=== PATIENT | male | born 1960 | race Caucasian/White ===

== ENCOUNTER 2017-05-03 16:02 | Outpatient (CLI) | payer OTHER | END 2017-05-03 16:03 | disposition home or self-care (01) | LOC: BICRAD 16:02 | PROVIDERS: ATTEND Specialist | DX: R05 Cough (principal) | CPT/HCPCS: 71046 ==

== ENCOUNTER 2017-08-21 11:14 | Outpatient (CLI) | payer OTHER | END 2017-08-21 11:15 | disposition home or self-care (01) | LOC: BICRAD 11:14 | PROVIDERS: ATTEND Family Medicine | DX: M25.521 Pain in right elbow (principal) ==

== ENCOUNTER 2017-08-29 15:40 | Outpatient (CLI) | payer OTHER | END 2017-08-29 15:41 | disposition home or self-care (01) | LOC: BICMRI 15:40 | PROVIDERS: ATTEND Family Medicine | DX: S42.451A Displaced fracture of lateral condyle of right humerus, initial encounter for closed fracture (principal); M89.8X4 Other specified disorders of bone, hand; M25.441 Effusion, right hand; M24.021 Loose body in right elbow; S56.511A Strain of other extensor muscle, fascia and tendon at forearm level, right arm, initial encounter; M94.8X3 Other specified disorders of cartilage, forearm; G56.81 Other specified mononeuropathies of right upper limb ==

== ENCOUNTER 2017-12-21 16:50 | Outpatient (CLI) | payer OTHER ==
--- NOTE | 2017-12-22 12:11 | MRI ---
MRI OF THE RIGHT SHOULDER WITHOUT CONTRAST: INDICATION: Right shoulder pain with difficulty raising arms for 3 months. The patient has a history of fall on the right shoulder. COMPARISON: None. FINDINGS: A small amount of fluid is seen within the subacromial subdeltoid bursa. There is a very low-grade u ndersurface tear involving the anterior to mid supraspinatus at the footprint measuring 0.7 x 1 cm in its greatest mediolateral and AP dimensions respectively. The infraspinatus is intact. No muscular atrophy is evident. There is moderate AC joint osteoarthrosis with joint hypertrophy causing mild e ncroachment on the subjacent supraspinatus. No os acromiale is evident. There is a type II acromion . The biceps tendon is located. The inferior glenohumeral labral ligamentous complex appears intact . No large joint effusion is evident. The biceps anchor complex is intact. IMPRESSION: 1. Low-grade partial thickness articular surface tear of the anterior to mid supraspinatus at the fo otprint with mild supraspinatus an infraspinatus tendinosis. 2. Moderate acromioclavicular joint osteoarthrosis with mild encroachment. 3. A small amount of fluid in the subacromial subdeltoid space may reflect mild bursitis. POS: [facility]
== END 2017-12-21 16:51 | disposition home or self-care (01) ==
LOC: MRI 16:50
PROVIDERS: ATTEND Orthopaedic Surgery
DX: M25.511 Pain in right shoulder (principal); M19.011 Primary osteoarthritis, right shoulder; M75.101 Unspecified rotator cuff tear or rupture of right shoulder, not specified as traumatic

== ENCOUNTER 2018-01-09 13:50 | Outpatient (CLI) | payer OTHER ==
[2018-01-09 14:49] LABS: Hemoglobin 18.7 g/dL (14.0-18.0); Mean Corpuscular HGB CONC 32.4 g/dL (32.0-36.0); Mean Corpuscular Hemoglobin 31.6 pg (27.0-31.0); Mean Corpuscular Volume 97.6 fL (78.0-98.0); Mean Platelet Volume 6.4 fL (7.4-10.4); Platelet Count 283 thou/uL (130-400); RBC Distribution Width 12.4 % (11.5-14.5); Red Blood Cell (RBC) Count 5.91 mill/uL (4.70-6.10)
[2018-01-09 15:06] LABS: Anion Gap 11 mmol/L (10-20); BUN (Urea Nitrogen) 29 mg/dL (8.4-25.7); Calc. Creatinine Clearance 0 mL/min (70-130); Calcium 9.7 mg/dL (7.8-10.44); Carbon Dioxide 29 mmol/L (22-29); Chloride 102 mmol/L (98-107); Estimated GFR-MDRD 61; Glucose 115 mg/dL (70-105); Potassium 4.5 mmol/L (3.5-5.1); Sodium 137 mmol/L (136-145)
--- NOTE | 2018-01-10 10:21 | EKG ---
Test Reason : Blood Pressure : / mmHG Vent. Rate : 064 BPM Atrial Rate : 064 BPM P-R Int : 192 ms QRS Dur : 092 ms QT Int : 362 ms P-R-T Axes : 042 025 040 degrees QTc Int : 373 ms Poor data quality, interpretation may be adversely affected Normal sinus rhythm Cannot exclude Anteroseptal infarct , age undetermined Abnormal ECG Confirmed by MAIA LANDERS ([id number]) on 01/10/2018 10:20:35 AM Referred By: AIDAN Confirmed By:MAIA LANDERS
== END 2018-01-09 13:51 | disposition home or self-care (01) ==
LOC: LABBT 13:50
PROVIDERS: ATTEND Orthopaedic Surgery
DX: Z01.818 Encounter for other preprocedural examination (principal)
CPT/HCPCS: 80048; 85027; 93005; 93010

== ENCOUNTER 2018-01-18 07:10 | Day surgery (SDC) | payer OTHER ==
[2018-01-09 14:06] VITALS: BMI 29.5
[2018-01-18] MEDS ORDERED: Fentanyl 100 MCG/2 ML VIAL ONE ×3 (08:33→12:16)
[2018-01-18] MEDS ORDERED: Midazolam HCl 2 mg/2 ml Vial ONE (08:33)
[2018-01-18] MEDS ORDERED: Lidocaine 2% Jelly 5 ML TUBE ONE (08:33)
[2018-01-18] MEDS ORDERED: Bupivacaine/Epinephrine 0.25% 30 ML VIAL ONE (08:41)
[2018-01-18] MEDS ORDERED: Dexamethasone 20 MG/5 ML VIAL ONE (08:48)
[2018-01-18] MEDS ORDERED: Betamet Acet/Betamet Na Ph 30 MG/5 ML VIAL ONE (08:48)
[2018-01-18] MEDS ORDERED: CEFAZOLIN 2 GM/50 ML BAG ONE (08:52)
--- NOTE | 2018-01-18 14:01 | RAD ---
TWO VIEWS RIGHT ELBOW: INDICATION: Foreign body removal. COMPARISON: Reference is made to radiograph of 08/21/2017. FINDINGS: Lateral projection of the right elbow reveals osseous irregularity at the site of the patient's previ ously diagnosed fracture of the capitellum. This is limited in evaluation by lateral projection. IMPRESSION: Intraoperative fluoroscopic imaging revealing lateral view of the right elbow, redemonstrating fractu re at the region of the capitellum. POS: [facility]
--- NOTE | 2018-01-18 14:01 | OP ---
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 Elbow arthroscopy with debridement and removal of loose bodies 2. Open arthrotomy with excision of the capitellum loose bodies. 3. Contracture release. 4. Right subacromial injection. STAFF: Landen Lozada M.D. ANESTHESIA: Aleena. The patient received general endotracheal intubation. He received 20 mL of Marcaine 0.25% with epinephrine intraarticularly preprocedure. He received 4 cc of marcaine and 60 mg of depomedrol subacromial after procedure. EBL: 50 cc TOURNIQUET TIME: 101 min 205 mmHg IMPLANTS: None EXPLANTS: capitellar OCD and multiple loose bodies ANTIBIOTICS: Ancef 2grams COMPLICATIONS: Broken arthroscopy grasper, fragment which was removed HISTORY OF PRESENT ILLNESS: 57 year male with a history of right elbow pain and right shoulder pain. He had a history of a right elbow I&D 4 years ago for a fungal infection. The patient had MRI evidence of a loose OCD of the capitellum with other loose bodies noted. The patient had limitations for extension. He has a history of chronic pain. He had pain with ROM. I discussed an arthroscopic versus open debridement with removal of loose bodies and capsular release of right elbow. Discussed risks and benefits of surgery to include: stiffness, damage to nerve/ artery/tendon, pain, scar, bleeding, decreased ROM/strength/function, infection , arthritis, loss of life or limb. The patient signed his consent. PROCEDURE NOTE: After a timeout was performed designated right elbow as the operative site based on consents, radiographs and markings. The tourniquet was brought up, it was left up for 101 minutes. I made a proximal anterior medial and proximal anterolateral portals, visualized intraarticular within the joint. I debrided the synovium and scar tissue. I visualized the capitellar OCD with a loose body which I pulled out 2-3 little small loose bodies. I made a mid- anterior lateral incision just anterior to the capitellum through his previous Anthony's interval scar, dissected in, was attempting to bring out the fragment when my grasper broke. I then attempted to grab the metal but was unsuccessful. Then switching from medial to lateral to get the capitellar defect would be best to remove it open. Given this and difficulty with arthroscopic procedure I converted to open through the previous Anthony incision extending it proximally through my incision oblique and back, came down through what looked like either EDC versus anconeus interval, coming down on the posterior aspect of the radial head, dissecting through the annular ligament. I came down on the capitellum, dissected off bone, took a portion of the patient 's brachioradialis to expose his joint, we took down the remnant of the capsule and released the capsule and was able to bring him to 0 degrees. Removed the remainder of the OCD, the metal fragment took the remainder of the time to find. We had to localized it under fluoroscopic guidance. It had fallen medially within the capitellum. After finally extracting it, taking the majority of the procedure, we washed the joint. I closed with 0 Vicryl my arthrotomy and my lateral column. I closed subcutaneous with 2-0 and 3-0 nylon , placed the patient in a soft tissue dressing. I then cleaned his right shoulder, injected his right shoulder with 60 mL of Depo-Medrol and 4 mL of Marcaine 0.25% with epinephrine. The patient was placed in a splint. He will receive postop block given history of chronic pain and duration of procedure. We will examine nerve function before proceeding with block. He will begin range of motion of his right arm. He will be followed up for suture removal in about 12-14 days. OMKAR
--- NOTE | 2018-01-19 02:50 | HP ---
HISTORY OF PRESENT ILLNESS: Mr. Comer is a 57-year-old male presents with left elbow pain. There has been a history of elbow fungal infection 4 years ago. History of back fusion. The patient presented with cubital tunnel symptoms his hand and has history of numbness and tingling, which was improved. The patient also has right shoulder pain, which showed a bursal-sided tear and would like to have an injection while being evaluated intraoperatively. PAST MEDICAL HISTORY: Hypertension, high cholesterol, diabetes, chronic pain. PAST SURGICAL HISTORY: Tonsillectomy, knee surgery, left knee I and Ds, right thigh I and Ds, right total knee arthroplasty, right elbow I and D, back fusion x2. MEDICATIONS: Please see admission list. ALLERGIES: LISINOPRIL. SOCIAL HISTORY: The patient has a history of drinking, history of smoking. The patient is a nonsmoker currently. He is a salesman, . PHYSICAL EXAMINATION: GENERAL: Alert and oriented male, in no acute distress, resting comfortably in bed. MUSCULOSKELETAL: On the right elbow, the patient has well-healed lateral incision. The patient has range of motion about 20 to 130 degrees. Strength is 5/5. No instability. Negative Tinel's. I could not touch, radial or ulnar function, neurovascularly intact distally. The patient has good cap refill. Right shoulder has pain with impingement signs and some weakness overhead activities. Otherwise, good range of motion. IMPRESSION: OCD capitellum, Arthritis of right elbow with loose bodies and degenerative cartilage with decreased range of motion. PLAN: The patient was taken back to the OR for an arthroscopic debridement vs open of his loose bodies as well as potential capsular release. I discussed with the patient that I would perform a subacromial injection for the patient's pain relief. I discussed the risks and benefits of surgery, most importantly potential damage to nerve structures. I discussed the risks and benefits of surgery including pain, scar, bleeding, infection, decreased range of motion or strength, damage to vital structures, continued pain, arthritis. The patient understands the risks and benefits and elected to proceed. The patient understands. We will proceed forward with a right elbow arthroscopic vs open debridement with capsular release and a right shoulder injection. OMKAR
== END 2018-01-18 13:28 | disposition home or self-care (01) ==
LOC: SDC 07:10
PROVIDERS: ATTEND Orthopaedic Surgery
PROC: 0RNL0ZZ Release Right Elbow Joint, Open Approach (ICD-10-PCS; principal; 2018-01-18)
PROC: 0RCL0ZZ Extirpation of Matter from Right Elbow Joint, Open Approach (ICD-10-PCS; principal; 2018-01-18)
PROC: 3E0U3BZ Introduction of Anesthetic Agent into Joints, Percutaneous Approach (ICD-10-PCS; 2018-01-18)
DX: M93.221 Osteochondritis dissecans, right elbow (principal); M24.021 Loose body in right elbow; M19.021 Primary osteoarthritis, right elbow; G56.21 Lesion of ulnar nerve, right upper limb; M25.511 Pain in right shoulder; E11.9 Type 2 diabetes mellitus without complications; E78.00 Pure hypercholesterolemia, unspecified; I10 Essential (primary) hypertension; Z53.33 Arthroscopic surgical procedure converted to open procedure; Z79.84 Long term (current) use of oral hypoglycemic drugs; Z79.899 Other long term (current) drug therapy; Z88.8 Allergy status to other drugs, medicaments and biological substances; Z98.1 Arthrodesis status; Z98.890 Other specified postprocedural states
CPT/HCPCS: 36416; 76001; 96374; J0702; J1100; J2250; J3010

== ENCOUNTER 2019-02-21 17:30 | Outpatient (CLI) | payer OTHER | END 2019-02-21 17:31 | disposition home or self-care (01) | LOC: SLEEPLAB 17:30 | PROVIDERS: ATTEND Family Medicine | DX: F51.9 Sleep disorder not due to a substance or known physiological condition, unspecified (principal); G47.33 Obstructive sleep apnea (adult) (pediatric); R53.83 Other fatigue | CPT/HCPCS: 95806 ==

== ENCOUNTER 2019-10-02 14:30 | Outpatient (CLI) | payer OTHER ==
--- NOTE | 2019-10-02 15:37 | MRI ---
MRI lumbar spine noncontrast HISTORY: Low back pain. Prior surgery. FINDINGS: The conus medullaris has normal appearance and terminates at the L1-2 level. Vertebral body heights are maintained with the exception of minimal physiologic wedging at the T12 and L1 levels. Mild discogenic endplate changes. There is desiccation of the lowest 2 intervertebral discs. Images including the retroperitoneum show cortical cysts of each kidney. Mild posterior disc bulge at T11/12 level. T12-L1, L1-2, L2-3, L3-4: Mild osteophytosis of the facets. Disc hydration is maintained. Central can al and neural foramina are patent. L4-5: Minimal degenerative retrolisthesis. Posterior disc bulge with very mild effacement of the thec al sac. No significant central canal stenosis. Osteophytosis of the facets. Neural foramina are partially obscured by metallic susceptibility artifact from adjacent hardware. There is the appearanc e of severe left and moderate right foraminal stenoses. L5-S1: Posterior operative fixation. 0.8 cm spondylolisthesis is similar to the CT exam from 2016. Th ecal sac is patent. Neural foramina partially obscured by metallic susceptibility artifact. There is suggestion of severe bilateral foraminal stenoses. IMPRESSION : Postoperative changes lower lumbar spine. While the neural foramina are partially obscured by metalli c susceptibility artifact from the adjacent hardware, there is suggestion of significant bilateral foraminal stenoses at the lowest 2 levels.
== END 2019-10-02 14:31 | disposition home or self-care (01) ==
LOC: TBSIIMAG 14:30
PROVIDERS: ATTEND Nurse Practitioner Family
DX: M47.26 Other spondylosis with radiculopathy, lumbar region (principal); Z98.890 Other specified postprocedural states
CPT/HCPCS: 72148

== ENCOUNTER 2020-01-16 06:56 | Outpatient (CLI) | payer OTHER ==
[2020-01-17 15:02] LABS: SARS-CoV-2 MS2 Positive; SARS-CoV-2 N Gene Negative; SARS-CoV-2 S Gene Negative; SARS-CoV-2 by NAA Not Detected (NotDetected); SARS-CoV-2 orf1ab Negative
== END 2020-01-16 06:57 | disposition home or self-care (01) ==
LOC: LABBT 06:56
PROVIDERS: ATTEND Orthopaedic Surgery
DX: G56.01 Carpal tunnel syndrome, right upper limb (principal); G56.21 Lesion of ulnar nerve, right upper limb; Z20.828 Contact with and (suspected) exposure to other viral communicable diseases
CPT/HCPCS: 87635; 93005; 93010; U0003

== ENCOUNTER 2020-01-21 05:59 | Day surgery (SDC) | payer OTHER ==
[2020-01-20 11:21] VITALS: BMI 29.8
[2020-01-21] MEDS ORDERED: Acetaminophen 500 MG TAB ONE (07:40)
[2020-01-21] MEDS ORDERED: Fentanyl 100 MCG/2 ML VIAL ONE ×3 (08:22→10:18)
[2020-01-21] MEDS ORDERED: EPINEPHrine 1 MG/ML AMP ONE (08:23)
[2020-01-21] MEDS ORDERED: Ondansetron PF 4 MG/2 ML Vial ONE (10:26)
[2020-01-21] MEDS ORDERED: Rocuronium Bromide 10 MG/ML (10ML VIAL) ONE (10:26)
[2020-01-21] MEDS ORDERED: Lidocaine 1% PF 5 ML VIAL ONE (10:26)
[2020-01-21] MEDS ORDERED: PROPOFOL 200 MG/20 ML VIAL ONE (10:26)
--- NOTE | 2020-01-22 14:24 | OP ---
DATE OF PROCEDURE: 01/21/2020 PREOPERATIVE DIAGNOSIS: Multiple vocal fold masses and lesions. POSTOPERATIVE DIAGNOSIS: Multiple vocal fold masses and lesions. INDICATIONS: A 59-year-old male patient presenting to the clinic with increasing hoarseness and difficulty talking on the phone with some fullness or pressure in the throat with a history of previous vocal fold nodules and masses removed endoscopically or microscopically. Flexible fiberoptic laryngoscopy in the clinic shows multiple vocal fold masses and the patient was brought back to the operating room for operative intervention. PROCEDURE: Microscopic direct suspension laryngoscopy with submucosal resection with microlaryngeal flap of vocal fold mass with excision of multiple small masses of the right true vocal fold. PERMIT: Procedures, benefits, and risks including those of bleeding, infection, injury from anesthesia, allergic reaction, and scarring of the vocal fold, increasing hoarseness, damage to oral cavity, oropharynx, or larynx necessitating revision or repair and alternatives were reviewed with the patient and family who expressed understanding of the information. Consent form was witnessed and signed, and a paper copy of the consent form is available for review in the paper chart. ASSISTANTS: None. FINDINGS: Large posterior vocal fold mass occupying the phonating surface, anterior vocal fold mass on the true vocal folds and false vocal fold mass, and ventricle mass with papillomatous-type features. DESCRIPTION OF OPERATION: The patient was brought to the operating room and laid supine on the operating room table and general endotracheal anesthesia was administered with 5.5 micro laryngeal tube and the patient was turned 90 degrees to the left and a Esperanza was used to examine the patient's oral cavity and oropharynx and to suspend the patient's larynx with full view of the larynx from the anterior commissure to the posterior glottic space. After the Esperanza was suspended, the operative telescope was brought into place to examine the patient's true vocal folds and there were multiple masses as listed in the findings section. Next, the operative microscope was brought into place and the largest phonating surface mass was addressed 1st. A small incision on the lateral side of the mass was made through the mucosa and elevation of the soft tissue was made over the mass and the mass was dissected free from the deeper vocal fold ligament and tissue and the mass was removed and sent for pathologic evaluation with remaining healthy tissue flaps placed over the dissection. Next, attention was turned to the other vocal fold masses. The other vocal fold masses were papillomatous in features and a small micro laryngeal cup forceps was used to grasp the masses and sharp dissection with curved micro laryngeal scissors was used to dissect the papillomatous mass from the surface. Again, the same procedure was used for the ventricular space mass as well as the false vocal fold mass and once all the masses were removed, a small epinephrine-soaked pledget was used to dab the surface to stop bleeding and then a 5 cc syringe of saline was then injected into the Esperanza and then the laryngeal suction was used to suction. The microscope was then retracted and the telescope was used to examine the patient's subglottis down to the endotracheal tube cuff and then any blood and saline was suctioned clear. Next, the vocal fold surfaces were evaluated and there was no bleeding seen and the patient's airway was patent and the patient was turned back to Anesthesia for emergency and the patient was taken off suspension and the Esperanza was removed. The patient's dental guard was in place to protect the patient's teeth from the Esperanza and there was no damage to teeth, lips, gums, tongue, floor of mouth, or the oropharynx or larynx. Job ID: [id number]
== END 2020-01-21 11:18 | disposition home or self-care (01) ==
LOC: SDC 05:59
PROVIDERS: ATTEND Student in an Organized Health Care Education/Training Program
PROC: 0CBS8ZZ Excision of Larynx, Via Natural or Artificial Opening Endoscopic (ICD-10-PCS; principal; 2020-01-21)
DX: J38.3 Other diseases of vocal cords (principal); I10 Essential (primary) hypertension; E11.9 Type 2 diabetes mellitus without complications; E78.5 Hyperlipidemia, unspecified; Z79.84 Long term (current) use of oral hypoglycemic drugs; Z79.899 Other long term (current) drug therapy
CPT/HCPCS: 88305; J0171; J2405; J2704; J3010

== ENCOUNTER 2021-04-01 10:07 | Outpatient (CLI) | payer OTHER | END 2021-04-01 10:08 | disposition home or self-care (01) | LOC: CT 10:07 | PROVIDERS: ATTEND Student in an Organized Health Care Education/Training Program | DX: C43.30 Malignant melanoma of unspecified part of face (principal); R59.0 Localized enlarged lymph nodes | CPT/HCPCS: 70487; 70491; 82565 ==

== ENCOUNTER 2021-04-06 10:33 | Day surgery (SDC) | payer OTHER ==
[2021-04-02 13:39] VITALS: BMI 29.1
[2021-04-06] MEDS ORDERED: Fentanyl 100 MCG/2 ML VIAL ONE ×4 (11:14→15:28)
[2021-04-06] MEDS ORDERED: Bacitracin Zinc Ointment 30 gm TUBE ONE (12:03)
[2021-04-06] MEDS ORDERED: Xylocaine 1% w/ Epi 1:100K 10 ML VIAL ONE (12:03)
[2021-04-06] MEDS ORDERED: Glycopyrrolate 0.2 MG/ML 5 ML SYRINGE ONE (12:52)
[2021-04-06] MEDS ORDERED: ePHEDrine 50 MG/ML VIAL ONE (12:52)
[2021-04-06] MEDS ORDERED: PHENYLEPHRINE-NS 100 MCG/ML 10 ML SYRINGE ONE (12:52)
[2021-04-06] MEDS ORDERED: Rocuronium Bromide 10 MG/ML (10ML VIAL) ONE (12:52)
[2021-04-06] MEDS ORDERED: PROPOFOL 200 MG/20 ML VIAL ONE (12:52)
[2021-04-06] MEDS ORDERED: Lidocaine 1% PF 5 ML VIAL ONE (12:52)
[2021-04-06] MEDS ORDERED: Ondansetron PF 4 MG/2 ML Vial ONE (12:52)
[2021-04-06] MEDS ORDERED: Dexamethasone 20 MG/5 ML VIAL ONE (12:52)
== END 2021-04-06 16:45 | disposition home or self-care (01) ==
LOC: SDC 10:33
PROVIDERS: ATTEND Student in an Organized Health Care Education/Training Program
PROC: 0HB1XZZ Excision of Face Skin, External Approach (ICD-10-PCS; principal; 2021-04-06)
PROC: 0HR1X73 Replacement of Face Skin with Autologous Tissue Substitute, Full Thickness, External Approach (ICD-10-PCS; principal; 2021-04-06)
DX: C43.39 Malignant melanoma of other parts of face (principal); I10 Essential (primary) hypertension; E78.5 Hyperlipidemia, unspecified; E11.9 Type 2 diabetes mellitus without complications; M19.90 Unspecified osteoarthritis, unspecified site; Z86.16 Personal history of COVID-19; Z79.84 Long term (current) use of oral hypoglycemic drugs; Z79.899 Other long term (current) drug therapy; Z98.1 Arthrodesis status
CPT/HCPCS: 88305; J1100; J2405; J2704; J3010; J3490

== ENCOUNTER 2021-04-30 10:03 | Outpatient (CLI) | payer OTHER ==
[~2021-04-30 10:03] MED LIST: Iopamidol 370 76% 100 ML VIAL ONE
== END 2021-04-30 10:04 | disposition home or self-care (01) ==
LOC: CT 10:03
PROVIDERS: ATTEND Student in an Organized Health Care Education/Training Program
DX: R59.0 Localized enlarged lymph nodes (principal); R91.1 Solitary pulmonary nodule; J98.4 Other disorders of lung; N28.1 Cyst of kidney, acquired; D17.5 Benign lipomatous neoplasm of intra-abdominal organs; K57.30 Diverticulosis of large intestine without perforation or abscess without bleeding; K59.00 Constipation, unspecified; K76.0 Fatty (change of) liver, not elsewhere classified
CPT/HCPCS: 71260; 74177; Q9967

== ENCOUNTER 2021-07-23 16:30 | Outpatient (CLI) | payer OTHER ==
[2021-07-24 00:11] LABS: SARS-CoV-2 PCR by NAA Not Detected (NotDetected)
== END 2021-07-23 16:31 | disposition home or self-care (01) ==
LOC: LABBT 16:30
PROVIDERS: ATTEND Student in an Organized Health Care Education/Training Program
DX: Z01.818 Encounter for other preprocedural examination (principal); L81.9 Disorder of pigmentation, unspecified; L90.5 Scar conditions and fibrosis of skin; Z20.822 Contact with and (suspected) exposure to COVID-19
CPT/HCPCS: 93005; 93010; U0003; U0005

== ENCOUNTER 2021-07-27 07:38 | Day surgery (SDC) | payer OTHER ==
[2021-07-22 16:24] VITALS: BMI 29.8
[2021-07-27] MEDS ORDERED: Bacitracin Zinc Ointment 30 gm TUBE ONE (08:23)
[2021-07-27] MEDS ORDERED: Lidocaine 1% w/Epinephrine 1:100K 20 ML VIAL ONE (08:23)
[2021-07-27] MEDS ORDERED: fentaNYL Citrate/PF 100 MCG/2 ML SYRINGE ONE (08:55)
[2021-07-27] MEDS ORDERED: ceFAZolin (BATCH) 2 GM/100 ML BAG ONE (08:56)
[2021-07-27] MEDS ORDERED: Dexmedetomidine 200 MCG/2 ML VIAL ONE (08:56)
[2021-07-27] MEDS ORDERED: Rocuronium Bromide 10 MG/ML (10ML VIAL) ONE (09:12)
[2021-07-27] MEDS ORDERED: Glycopyrrolate 0.2 MG/ML 5 ML SYRINGE ONE (09:12)
[2021-07-27] MEDS ORDERED: PHENYLEPHRINE-NS 100 MCG/ML 10 ML SYRINGE ONE (09:12)
[2021-07-27] MEDS ORDERED: PROPOFOL 200 MG/20 ML VIAL ONE (09:12)
[2021-07-27] MEDS ORDERED: Ondansetron PF 4 MG/2 ML Vial ONE (09:12)
[2021-07-27] MEDS ORDERED: Lidocaine 1% PF 5 ML VIAL ONE (09:12)
== END 2021-07-27 12:12 | disposition home or self-care (01) ==
LOC: SDC 07:38
PROVIDERS: ATTEND Student in an Organized Health Care Education/Training Program
PROC: 0HB1XZZ Excision of Face Skin, External Approach (ICD-10-PCS; principal; 2021-07-27)
DX: D03.39 Melanoma in situ of other parts of face (principal); L90.5 Scar conditions and fibrosis of skin; I10 Essential (primary) hypertension; E78.5 Hyperlipidemia, unspecified; E11.9 Type 2 diabetes mellitus without complications; G47.33 Obstructive sleep apnea (adult) (pediatric); Z86.16 Personal history of COVID-19; Z79.84 Long term (current) use of oral hypoglycemic drugs; Z79.891 Long term (current) use of opiate analgesic; Z79.899 Other long term (current) drug therapy; Z98.1 Arthrodesis status
CPT/HCPCS: 88305; 88342; J0690; J2405; J2704

== ENCOUNTER 2021-08-26 12:13 | Outpatient (CLI) | payer OTHER ==
[2021-08-26 14:59] LABS: Anion Gap 18 mmol/L (10-20); BUN (Urea Nitrogen) 27 mg/dL (8.4-25.7); Calc. Creatinine Clearance 0 mL/min (70-130); Calcium 9.9 mg/dL (7.8-10.44); Carbon Dioxide 25 mmol/L (22-29); Chloride 97 mmol/L (98-107); Glucose 175 mg/dL (70-105); Potassium 4.7 mmol/L (3.5-5.1); Sodium 135 mmol/L (136-145)
== END 2021-08-26 12:14 | disposition home or self-care (01) ==
LOC: LABBT 12:13
PROVIDERS: ATTEND Student in an Organized Health Care Education/Training Program
DX: Z01.818 Encounter for other preprocedural examination (principal); D03.9 Melanoma in situ, unspecified; R20.0 Anesthesia of skin; L98.9 Disorder of the skin and subcutaneous tissue, unspecified; Z20.822 Contact with and (suspected) exposure to COVID-19
CPT/HCPCS: 80048; 93005; 93010; U0003; U0005

== ENCOUNTER 2021-08-31 08:50 | Day surgery (SDC) | payer OTHER ==
[2021-08-27 11:37] VITALS: BMI 30.5
[2021-08-31] MEDS ORDERED: HYDROmorphone 0.5 MG/0.5 ML SYRINGE ONE (09:29)
[2021-08-31] MEDS ORDERED: Midazolam HCl 2 mg/2 ml Vial ONE (09:29)
[2021-08-31] MEDS ORDERED: fentaNYL Citrate/PF 100 MCG/2 ML SYRINGE ONE (09:29)
[2021-08-31] MEDS ORDERED: Lidocaine 1% w/Epinephrine 1:100K 20 ML VIAL ONE (10:38)
[2021-08-31] MEDS ORDERED: Bacitracin Zinc Ointment 30 gm TUBE ONE (11:12)
[2021-08-31] MEDS ORDERED: Lidocaine 1% PF 5 ML VIAL ONE (11:28)
[2021-08-31] MEDS ORDERED: Ondansetron PF 4 MG/2 ML Vial ONE (11:28)
[2021-08-31] MEDS ORDERED: PROPOFOL 200 MG/20 ML VIAL ONE (11:28)
[2021-08-31] MEDS ORDERED: Dexamethasone 20 MG/5 ML VIAL ONE (11:28)
[2021-08-31] MEDS ORDERED: Succinylcholine 200 MG/10 ml SYRINGE FS ONE (11:28)
[2021-08-31] MEDS ORDERED: ePHEDrine 50 MG/ML VIAL ONE (11:28)
[2021-08-31] MEDS ORDERED: Fentanyl 100 MCG/2 ML VIAL ONE (13:46)
== END 2021-08-31 14:58 | disposition home or self-care (01) ==
LOC: SDC 08:50
PROVIDERS: ATTEND Student in an Organized Health Care Education/Training Program
PROC: 0HB1XZZ Excision of Face Skin, External Approach (ICD-10-PCS; principal; 2021-08-31)
DX: D03.39 Melanoma in situ of other parts of face (principal); L98.9 Disorder of the skin and subcutaneous tissue, unspecified; I10 Essential (primary) hypertension; E11.9 Type 2 diabetes mellitus without complications; E78.5 Hyperlipidemia, unspecified; Z79.84 Long term (current) use of oral hypoglycemic drugs; Z79.899 Other long term (current) drug therapy; Z86.16 Personal history of COVID-19
CPT/HCPCS: 88305; 88342; J1100; J1170; J2250; J2405; J2704; J3010; J3490

== ENCOUNTER 2021-09-24 10:53 | Outpatient (CLI) | payer OTHER ==
[2021-04-01 15:06] LABS: Anion Gap 14 mmol/L (10-20); BUN (Urea Nitrogen) 27 mg/dL (8.4-25.7); Calc. Creatinine Clearance 0 mL/min (70-130); Calcium 9.3 mg/dL (7.8-10.44); Carbon Dioxide 28 mmol/L (22-29); Chloride 98 mmol/L (98-107); Glucose 167 mg/dL (70-105); Potassium 4.3 mmol/L (3.5-5.1); Sodium 136 mmol/L (136-145)
== END 2021-09-24 10:54 | disposition home or self-care (01) ==
LOC: LABBT 10:53
PROVIDERS: ATTEND Internal Medicine
DX: Z01.818 Encounter for other preprocedural examination (principal); Z20.822 Contact with and (suspected) exposure to COVID-19
CPT/HCPCS: 80048; 87811; 93005; 93010; U0003; U0005

== ENCOUNTER 2021-09-29 10:17 | Day surgery (SDC) | payer OTHER ==
[2021-06-30 10:10] VITALS: BMI 29.1
[~2021-09-29 10:17] MED LIST changes: +Dexamethasone 20 MG/5 ML VIAL ONE; -Iopamidol 370 76% 100 ML VIAL ONE; +Lidocaine 1% PF 5 ML VIAL ONE; +Ondansetron PF 4 MG/2 ML Vial ONE; +PROPOFOL 200 MG/20 ML VIAL ONE; +Rocuronium Bromide 10 MG/ML (10ML VIAL) ONE
[2021-09-29] MEDS ORDERED: Fentanyl 100 MCG/2 ML VIAL ONE (11:33)
[2021-09-29] MEDS ORDERED: fentaNYL Citrate/PF 100 MCG/2 ML SYRINGE ONE (12:03)
[2021-09-29] MEDS ORDERED: Lidocaine 2% 6 ML SYR ONE (12:18)
[2021-09-29] MEDS ORDERED: SUGAMMADEX SODIUM 200 MG/2 ML VIAL ONE (14:05)
[2021-10-03 11:37] LABS: Fungus Stain Final report (.)
[2021-10-03 11:37] LABS: Fungus Stain Final report (.)
== END 2021-09-29 15:25 | disposition home or self-care (01) ==
LOC: SDC 10:17
PROVIDERS: ATTEND Internal Medicine
PROC: 0B9F8ZX Drainage of Right Lower Lung Lobe, Via Natural or Artificial Opening Endoscopic, Diagnostic (ICD-10-PCS; principal; 2021-09-29)
PROC: 07978ZX Drainage of Thorax Lymphatic, Via Natural or Artificial Opening Endoscopic Approach, Diagnostic (ICD-10-PCS; principal; 2021-09-29)
DX: I88.9 Nonspecific lymphadenitis, unspecified (principal); R91.1 Solitary pulmonary nodule; E11.9 Type 2 diabetes mellitus without complications; G89.29 Other chronic pain; M54.9 Dorsalgia, unspecified; G47.33 Obstructive sleep apnea (adult) (pediatric); M15.9 Polyosteoarthritis, unspecified; Z86.16 Personal history of COVID-19; Z87.891 Personal history of nicotine dependence; Z79.811 Long term (current) use of aromatase inhibitors; Z79.84 Long term (current) use of oral hypoglycemic drugs; Z79.899 Other long term (current) drug therapy
CPT/HCPCS: 87070; 87102; 87116; 87205; 87206; 88112; 88173; 88305; J1100; J2405; J2704; J3010; J7620